=== PATIENT | female | born 1990 | race Caucasian/White ===

== ENCOUNTER 2017-05-24 05:39 | Day surgery (SDC) | payer BC ==
[2017-05-24] MEDS ORDERED: FENTAnyl 50 MCG/ML VIAL (07:43)
[2017-05-24] MEDS ORDERED: MIDAZOLAM 1 MG/ML 2 ML INJ (07:43)
== END 2017-05-24 10:55 | disposition home or self-care (01) ==
LOC: GIL 05:39
DX: K21.9 Gastro-esophageal reflux disease without esophagitis (principal); B96.81 Helicobacter pylori [H. pylori] as the cause of diseases classified elsewhere; K29.60 Other gastritis without bleeding
CPT/HCPCS: 43239; 84703; 87081